=== PATIENT | male | born 1955 | race Caucasian/White ===

== ENCOUNTER 2018-11-29 06:01 | Day surgery (SDC) | payer SELFPAY ==
[~2018-11-29] VITALS: Ht 172.7 cm; Wt 85.3 kg
[2018-11-29 06:16] VITALS: BP 131/79; PULSE 73; TEMP 97.6
[2018-11-29 08:30] VITALS: BP 141/92; PULSE 70; TEMP 97
--- NOTE | 2018-11-29 08:30 | NUR ---
The patient arrived back to [facility] from the operating room at this time. The patient appears alert and oriented and denies any pain or nausea at this time. The patient has an incision with sutures in place to his right yazdanism that appears without redness or drainage. Post operative vital signs were started at this time. The patient denies wanting anything to eat or drink at this time. Call light is within reach. Will continue to monitor the patient.
[2018-11-29 08:45] VITALS: BP 143/85; PULSE 69
--- NOTE | 2018-11-29 08:45 | NUR ---
The patient is sitting up in bed and appears to be resting comfortably on the cart. The patient agrees to try a muffin and orange juice a this time. Will continue to monitor the patient.
[2018-11-29 09:02] VITALS: BP 145/96; PULSE 77
--- NOTE | 2018-11-29 09:02 | NUR ---
The patient appears to be tolerating the food and drink well. The patient's vital signs appear stable. Will continue to monitor the patient.
[2018-11-29 09:15] VITALS: BP 142/88; PULSE 75
--- NOTE | 2018-11-29 09:18 | NUR ---
The patient has finished his food and drink and voices a desire to be discharged home.
--- NOTE | 2018-11-29 09:25 | NUR ---
Discharge instructions were reviewed with the patient at this time. He verbalized understanding and has no questions for the nurse at this time. The patient's IV to his right hand was removed and a pressure dressing was applied to the site. The nurse instructed the patient to call his ride and get dressed. He is to notify the staff when he is ready to be escorted out.
--- NOTE | 2018-11-29 09:35 | NUR ---
The patient ambulated out independently using a steady gait and appeared to tolerate the activity well. The patient's family is coming to pick him up at the Patient Entrance. The patient was left to wait on the bench by the entrance. The patient's belongings and discharge paperwork were sent with him.
== END 2018-11-29 09:35 | disposition home or self-care (01) ==
LOC: SDCO 06:01
DX: D23.39 Other benign neoplasm of skin of other parts of face (principal); C44.319 Basal cell carcinoma of skin of other parts of face; Z85.828 Personal history of other malignant neoplasm of skin
CPT/HCPCS: J0690; J2704; J3010; J7120